=== PATIENT | female | born 1990 | race Caucasian/White ===

== ENCOUNTER 2016-12-06 22:20 | Inpatient (IN) | payer BC ==
[2016-12-06 23:00] VITALS: BP 139/80; PULSE 88; RESP 17; TEMP 97.7; O2SAT 100
[2016-12-07] MEDS ORDERED: LORazepam 1 MG TAB PO PRN (05:45)
[2016-12-07] MEDS ORDERED: MAGNESIUM HYDROXIDE SUSP 30 ML CUP PO PRN (05:45)
[2016-12-07] MEDS ORDERED: BENZTROPINE MESYLATE 1 MG TAB PO PRN (05:45)
[2016-12-07] MEDS ORDERED: diphenhydrAMINE HCL 50 MG/ML VIAL - HS PRN IM (05:45)
[2016-12-07] MEDS ORDERED: ALUMINUM/MAGNESIUM/SIMETH 30 ML CUP PO PRN (05:45)
[2016-12-07] MEDS ORDERED: LORazepam 2 MG/ML VIAL IM PRN ×2 (05:45→11:45)
[2016-12-07] MEDS ORDERED: BENZTROPINE MESYLATE 2 MG/2 ML VIAL IM PRN (05:45)
[2016-12-07 06:00] VITALS: BP 131/72; PULSE 90; RESP 15; TEMP 97.8; O2SAT 97
[2016-12-07] MEDS: NICOTINE 21 MG/24 HR PATCH T-DERMAL SCH (09:00)
[2016-12-07] MEDS: ACETAMINOPHEN 325 MG TAB PO PRN ×2 (09:07→22:12)
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
[2016-12-07] MEDS: lamoTRIgine 25 MG TAB PO SCH (11:54)
[2016-12-07] MEDS: ARIPiprazole 10 MG TAB PO SCH (11:54)
--- NOTE | 2016-12-07 16:51 | EKG ---
Date Performed: 12/07/2016 Time Performed: 12:33:07 PTAGE: 26 years EKG: Sinus rhythm LEFT ATRIAL ENLARGEMENT LOW QRS VOLTAGE IN PRECORDIAL LEADS ABNORMAL ECG NO PREVIOUS TRACING DOCTOR: Ricky Quintanilla Interpretating Date/Time 12/07/2016 16:49:27
[2016-12-07 18:10] VITALS: BP 120/73; PULSE 88; RESP 18; TEMP 98; O2SAT 97
[2016-12-07] MEDS: REMOVE OLD NICOTINE PATCH T-DERMAL SCH (21:00)
[2016-12-07] MEDS: diphenhydrAMINE HCL 50 MG CAP - HS PRN PO (22:11)
[2016-12-08 06:15] VITALS: BP 123/69; PULSE 82; RESP 16; TEMP 98.4; O2SAT 98
[2016-12-08] MEDS: lamoTRIgine 25 MG TAB PO SCH (08:05)
[2016-12-08] MEDS: ARIPiprazole 10 MG TAB PO SCH (08:05)
[2016-12-08] MEDS: NICOTINE 21 MG/24 HR PATCH T-DERMAL SCH (08:05)
[2016-12-08] MEDS: ACETAMINOPHEN 325 MG TAB PO PRN ×2 (08:07→16:49)
[2016-12-08] MEDS: LORazepam 1 MG TAB PO PRN ×2 (11:52→20:22)
[2016-12-08 12:30] LABS: HDL CHOLESTEROL 57.7 MG/DL (40.0-60.0); LDL CHOLESTEROL 82 MG/DL (0-99)
[2016-12-08 14:04] LABS: HEMOGLOBIN A1a 0.9 %; HEMOGLOBIN A1b 0.9 %; HEMOGLOBIN Ao 86.1 %; HEMOGLOBIN F 0.8 %; HEMOGLOBIN LA1C 2.3 %; HEMOGLOBIN P3 3.6 %
[2016-12-08 16:40] VITALS: BP 120/70; PULSE 84; RESP 18; TEMP 97.9; O2SAT 100
--- NOTE | 2016-12-08 16:54 | HHI.PYPN ---
Subjective Remarks Pt seen and discussed with staff. She is tolerating abilify without side effects. She reports mood is better today and more stable. She reports she had SI last night, but none so far today. No aggression or behavior problems. Mental Status Examination Appearance: Appropriate Consciousness: Alert Orientation: x4 Motor Activity: Other (no motor abnormalities noted) Speech: Unremarkable Language: Adequate Fund of Knowledge: Adequate Attention and Concentration: Adequate Memory: Unremarkable (grossly intact on clinical exam) Mood: Other (depressed) Affect: Other (restricted with occasional brightness) Thought Process & Associations: Logical, Linear Hallucination Type: None Delusion Type: None Suicidal Ideation: No (denies) Suicidal Plan: No Suicidal Intention: No Homicidal Ideation: No Homicidal Plan: No Homicidal Intention: No Insight: Adequate Judgment: Adequate Results Labs Test 12/08/16 10:59 Hemoglobin A1c 5.2 % Triglycerides Level 149 MG/DL Cholesterol Level 169 MG/DL LDL Cholesterol 82 MG/DL HDL Cholesterol 57.7 MG/DL Cholesterol/HDL Ratio 2.92 RATIO Thyroid Stimulating Hormone 3rd Gen 0.934 uIU/ML Vitals/IOs Vital Signs Date Time Temp Pulse Resp B/P (MAP) Pulse Ox O2 Delivery O2 Flow Rate FiO2 12/08/16 16:40 97.9 84 18 120/70 (87) 100 Assessment & Plan Problem List: (1) Severe depressed bipolar II disorder without psychotic features ICD Codes: F31.81 - Bipolar II disorder Status: Acute Assessment & Plan continue current tx plan Estimated LOS: days Justification for Cont. Inpt. monitoring for safety Request HC Surrog/Guard Advoc?: Erika Choe MD Dec 08, 2016 16:54
[2016-12-08] MEDS: diphenhydrAMINE HCL 50 MG CAP - HS PRN PO (20:22)
[2016-12-08] MEDS: REMOVE OLD NICOTINE PATCH T-DERMAL SCH (20:24)
[2016-12-09] MEDS: ACETAMINOPHEN 325 MG TAB PO PRN ×2 (03:49→11:03)
[2016-12-09 06:02] VITALS: BP 113/65; PULSE 86; RESP 17; TEMP 98.1; O2SAT 98
[2016-12-09] MEDS: ARIPiprazole 10 MG TAB PO SCH (08:24)
[2016-12-09] MEDS: lamoTRIgine 25 MG TAB PO SCH (08:24)
[2016-12-09] MEDS: NICOTINE 21 MG/24 HR PATCH T-DERMAL SCH (08:25)
[2016-12-09] MEDS ORDERED: LAMO25 PO (10:19)
[2016-12-09] MEDS ORDERED: ARIP1TAB12 PO (10:19)
--- NOTE | 2016-12-09 10:19 | HHI.DS ---
Psychiatry Discharge Summary Inpatient Psychiatric care?: Yes Advance Directive: No Mental Health AdvanceDirective: No Health Care Proxy: No Admission Admission Date Dec 06, 2016 at 23:43 Admission Diagnosis: (1) Severe depressed bipolar II disorder without psychotic features ICD Code: F31.81 - Bipolar II disorder Brief History Ms. Swartz is a 26-year-old female with a reported history of bipolar disorder type II who presents in transfer from outside hospital under a Kaplan act. Records from outside hospital reviewed. Patient presented there with depression and suicidal ideation. Reviewing our own electronic medical record, it appears this is patient's first visit to [facility]. Patient seen and examined with nurse. Chart reviewed. Case discussed with nursing staff. On my examination this morning, the patient presents as tearful and dysphoric. She explains that she has recently been undergoing medication adjustments with her new psychiatrist, changing from Pristiq to Latuda and finally switching to Lamictal at low dose. Mood has continued to worsen. She is crying daily. She endorses lack of energy and motivation. Poor concentration and focus. She is anhedonic. She endorses hypersomnia. Appetite is fair. She endorses suicidal ideation as recently as yesterday and has been thinking about crashing her car. She denies any suicidal ideation now. No urge to hurt herself on the inpatient psychiatric unit. She is somewhat future oriented and is looking forward in particular to a surprise republican for his sister and going out to [place] to visit other family members. No hypomanic or manic symptoms now although the patient does endorse a history of previous hypomanias and notes that for several weeks last fall she experienced increased sexual activity, spent $25,000, decreased need for sleep among other symptoms. No psychotic symptoms. The remainder of the psychiatric ROS is negative. Patient has no physical complaints. Past psychiatric history: The patient reports a history of bipolar disorder type II. She follows with Mita Philippe as her prescriber. She has 3 sessions left of counseling through her [facility] and plans to pursue private psychotherapy after that. She reports that she had been on Pristiq but this was changed to Latuda to try to obtain mood stabilization. Mood continued to worsen and so prescriber switched her to Lamictal at a dose of 25 mg daily. She denies any history of psychiatric admissions or suicide attempts. She denies any history of nonsuicidal self-injurious behavior. Tobacco Use In Past 30 Days: No Tobacco Past 30 Days Alcohol Use: Never Hospital Course Patient was admitted to a locked, inpatient psychiatric unit. Appropriate precautions were in place throughout patient's hospital stay. Patient was seen and examined daily on the unit by psychiatry and also visited by counselor. Psychotropic medications were adjusted. Patient tolerated medications well without side effects. There was no evidence of any suicidality or homicidality on the inpatient unit. The patient remained in good behavioral control and was medication compliant. On the day of discharge: Patient seen and examined with nurse. Chart reviewed. Case discussed with nursing staff. No behavioral issues overnight. On my examination today, patient reports that she feels improved from a psychiatric standpoint and is requesting discharge from the inpatient psychiatric unit today. She denies any suicidal or homicidal ideation , intent or plan on direct questioning and contracts for safety. Mood is improved versus admission, and depressive symptoms are lessened. No hypomanic or manic symptoms elicited. No audiovisual hallucinations. No delusional material elicited. She denies side effects from medications. She does have some chronic back pain but otherwise verbalizes no physical complaints. Met with patient and mother in family meeting on day of discharge, ~35min spent in consultation. We discuss diagnosis, prognosis and treatment plan. Relapse prevention and safety planning discussed. Psychotherapeutic modalities for management of affective symptoms discussed. With patient's permission, mother has secured home of guns, meds, etc.. We discuss voluntary emergent psychiatric assessment, Kaplan Act and ex parte as a means to bring patient to urgent psychiatric assessment. All of patient's/mother's questions answered. Mother feels comfortable accepting the patient home today. Weighing the acute, chronic, and protective factors and based on the available evidence, I field cane scaler helper to a reasonable degree of medical certainty that the patient is at low imminent risk of harm to self or others from a mental illness as defined Kaplan act and her level of function is adequate for outpatient care. Patient will be discharged today with psychiatric follow-up as arranged by counselor. Patient is also to follow-up with primary care. I have counseled patient regarding warning signs for need to return to the psychiatric emergency room as part of general safety plan. Results Blood Pressure 113 / 65 Vital Signs Date Time Temp Pulse Resp B/P (MAP) Pulse Ox O2 Delivery O2 Flow Rate FiO2 12/09/16 06:02 98.1 86 17 113/65 (81) 98 Laboratory Tests Test 12/07/16 14:07 12/08/16 10:59 Laboratory Results Test 12/08/16 10:59 Cholesterol Level 169 MG/DL (120-200) HDL Cholesterol 57.7 MG/DL (40.0-60.0) Hemoglobin A1c 5.2 % (4.3-6.0) LDL Cholesterol 82 MG/DL (0-99) Triglycerides Level 149 MG/DL (42-150) Summary of Procedures None done Imaging None done Pending results at discharge: No Medications # of Antipsychotic meds at D/C: 1 Approp Antipsych med options 1 - Minimum of three failed multiple trials of monotherapy. 2 - Documented plan to taper to monotherapy due to previous use of multiple meds OR cross-taper in progress at D/C. 3 - Documentation of augmentation of Clozapine. 4 - Justification other than those listed in allowable values 1-3, document here : Discharge Discharge Date: Dec 09, 2016 Discharge Diagnosis: (1) Sev bipolar II disordr, recent episode majr depress, partial remission Diagnosis: Principal ICD Code: F31.81 - Bipolar II disorder Pt Condition on Discharge: Stable Discharge Disposition: Discharge Home Discharge Instructions Diet Instructions: As Tolerated, No Restrictions Activities you can perform: Weight Bearing as Duncan Scheduled Appointment: as per counselor's notes New Medications: Aripiprazole (Aripiprazole) 10 Mg Tab 10 MG PO DAILY for Mental Health for 15 Days, #15 TAB 1 Refill Lamotrigine (Lamictal) 25 Mg Tab 25 MG PO DAILY for Mental Health for 1 Day, #1 TAB 0 Refills Patient to continue prior to admission Lamictal titration. This order is to update med rec only. Discharge Time > 30 minutes Mental Status Examination Appearance: Appropriate Consciousness: Alert Orientation: x4 Motor Activity: Normal gait, Other (no hand tremor, no dystonia, no dyskinesia , no other motoric abnormalities noted) Speech: Unremarkable Language: Adequate Fund of Knowledge: Adequate Attention and Concentration: Adequate Memory: Unremarkable Mood: Other (improved versus admission) Affect: Appropriate (full and reactive) Thought Process & Associations: Logical, Goal directed, Linear Thought Content: Appropriate Hallucination Type: None Delusion Type: None Suicidal Ideation: No Suicidal Plan: No Suicidal Intention: No Homicidal Ideation: No Homicidal Plan: No Homicidal Intention: No Insight: Adequate Judgment: Adequate Discharge/Advance Care Plan Health Problems: (1) Severe depressed bipolar II disorder without psychotic features Goals to promote your health * To prevent worsening of your condition and complications * To maintain your health at the optimal level Directions to meet your goals Take your medications as prescribed Follow your dietary instruction Follow activity as directed Keep your appointments as scheduled Take your immunizations and boosters as scheduled If your symptoms worsen call your PCP, if no PCP go to Urgent Care Center or Emergency Room For 09/09 questions related to your inpatient stay or results of tests pending at discharge, please contact Dr. Bryan Topete at Smoking is Dangerous to Your Health. Avoid second hand smoking Bryan Topete MD Dec 09, 2016 10:19
[2016-12-09 12:10] VITALS: BP 112/79; PULSE 97
[2016-12-09 12:13] VITALS: BP 121/81; PULSE 106
[2016-12-09 12:16] VITALS: BP 113/83; PULSE 140
== END 2016-12-09 13:20 | disposition home or self-care (01) | DRG 885 ==
LOC: H260 23:43
PROVIDERS: ADMIT Psychiatry & Neurology Psychiatry; ATTEND Psychiatry & Neurology Psychiatry
DX: F31.4 Bipolar disorder, current episode depressed, severe, without psychotic features (principal); R45.851 Suicidal ideations; G47.10 Hypersomnia, unspecified; G89.29 Other chronic pain; M54.9 Dorsalgia, unspecified; Z88.5 Allergy status to narcotic agent; Z91.410 Personal history of adult physical and sexual abuse
CPT/HCPCS: 80061; 83036; 84443; 84703; 93005; Q0163